=== PATIENT | female | born 1995 | race Caucasian/White ===

== ENCOUNTER 2022-05-31 09:09 | Outpatient (CLI) | payer BC, SELFPAY | END 2022-05-31 09:10 | disposition home or self-care (01) | LOC: NFLDREF 09:11 | PROVIDERS: Visit Provider Registered Nurse | DX: Z01.419 Encounter for gynecological examination (general) (routine) without abnormal findings (principal); Z13.6 Encounter for screening for cardiovascular disorders | CPT/HCPCS: 80061 ==

== ENCOUNTER 2022-09-27 11:51 | Outpatient (CLI) | payer BC, SELFPAY | END 2022-09-27 11:52 | disposition home or self-care (01) | PROVIDERS: PCP Registered Nurse; Visit Provider Registered Nurse | DX: R53.83 Other fatigue (principal) | CPT/HCPCS: 82306; 84443 ==

== ENCOUNTER 2023-02-14 11:04 | Outpatient (CLI) | payer BC, SELFPAY ==
[2023-02-14 13:09] LABS: Chlamydia DNA Amplified* NOT DETECTED (No Detected); GC DNA Amplified* NOT DETECTED (No Detected)
== END 2023-02-14 11:05 | disposition home or self-care (01) ==
LOC: NFLDREF 11:05
PROVIDERS: PCP Registered Nurse; Visit Provider Registered Nurse
DX: Z11.3 Encounter for screening for infections with a predominantly sexual mode of transmission (principal)
CPT/HCPCS: 87491; 87591

== ENCOUNTER 2024-08-18 17:54 | Outpatient (CLI) | payer BC, SELFPAY | END 2024-08-18 17:55 | disposition home or self-care (01) | LOC: NFLDREF 08-19 01:57 | DX: N30.01 Acute cystitis with hematuria (principal) | CPT/HCPCS: 87086 ==

== ENCOUNTER 2024-10-27 10:28 | Emergency (ER) | payer BC, SELFPAY ==
--- NOTE | 2024-10-27 10:29 | ED.GENADULT ---
HPI - General Adult General Date Seen: 10/27/24 Chief complaint: Abdominal Pain Stated complaint: pelvic pain Time Seen by Provider: 10/27/24 10:29 History of Present Illness HPI narrative: 29-year-old female presenting to the ER today with pain in her lower abdomen. She is according to her records from August. She had a UTI in August. She has a history of on IUD with removal last September. Also history of anxiety/depression (no medications listed). Family history of endometriosis, PCOS. She has no previous history of abdominal surgery. She think she probably has endometriosis but does not have a formal diagnosis. She has been healthy and well lately. She is due to have her next predicted menstrual cycle in about 5 days. Last night around midnight she had rather abrupt onset of pelvic pain. He was on both sides of her pelvis and felt achy and crampy similar to when she has bad. Cramping or mittelschmerz from ovulation but worse. She tried to lay an ice pack most and that it was painful. It is getting better this morning but is not gone. She called the [facility] to try to get an appointment but was referred here to the ER. She was mildly nauseous but did not vomit. No fever. No known injury. Bowel moods have been normal but she did have a little bit of pelvic pain when passing gas last. She was intimate with her shortly prior to onset of the pain but it did not occur during intercourse. Related Data Home Medications ?Medication ?Instructions ?Recorded ?Confirmed multivit,Ca,ryd-lhzn-EO-guarana-caff tab PO DAILY 05/31/22 08/20/24 18 mg iron-400 mcg-180 mg tablet (One-A-Day Women's Active) ubidecarenone-omega 3-vit E 25 1 cap PO ONCE 09/20/23 10/27/24 mg-150 (90-60) mg-200 unit capsule (Co G-37-Lhukiyn E-Fish Oil) Allergies Allergy/AdvReac Type Severity Reaction Status Date / Time No Known Allergies Allergy Unknown Verified 10/27/24 10:36 [facility] Medical History depression associated with first ?F53.0 - depression (ICD-10) Normal spontaneous vaginal delivery (06/06/21) ?O80 - Encounter for full-term uncomplicated delivery (ICD-10) Surgical History Anderson teeth extracted ?K08.409 - Partial loss of teeth, unspecified cause, unspecified class (ICD-10) Family History Father Heart disease Diabetes Paternal Grandfather Heart disease Paternal Grandmother Ovarian cancer Uterine cancer Maternal Grandmother Skin cancer Brain cancer Other Endometriosis PCOS (polycystic ovarian syndrome) Stroke Social History Narrative: Program at occupational health technician. . Nonsmoker. Alcohol use: 1 every 1-2 weeks What is your current living situation?: I presently have a place to live Problems where you live: no known problems In the past 12 months, utilities in danger of being shut off: no In past 12 months, lack of transportation kept you from medical appts, meetings, work, or getting things needed for daily living: no In the past 12 mos, have been you worried that your food would run out before you had money to buy more?: never true In the past 12 mos, the food you bought just didn't last and you didn't have money to buy more?: never true Smoking Status: Never smoker How often do you have a drink containing alcohol: never AUDIT-C Alcohol total score: 0 Non-prescribed substance use: denies use How often does anyone, including family, friends and others, physically hurt you: never How often does anyone, including family, friends and others, insult or talk down to you: never How often does anyone, including family, friends and others, threaten you with harm: never How often does anyone, including family, friends and others, scream or curse at you: never Exam Narrative: Exam Narrative: Constitutional: Appears well-developed and well-nourished. Alert. Conversant. Non toxic. HENT: Head: Atraumatic. Nose: Nose normal. Mouth/Throat: Oral mucosa is clear and moist. no trismus. Pharynx normal. Tonsils symmetric. No tonsillar enlargement, erythema, or exudate. Eyes: Conjunctivae normal. EOM normal. Pupils equal, round, and reactive to light. No scleral icterus. Neck: Normal range of motion. Neck supple. No tracheal deviation present. Cardiovascular: Normal rate, regular rhythm. No gallop. No friction rub. No murmur heard. Symmetric radial artery pulses Pulmonary/Chest: Effort normal. No stridor. No respiratory distress. No wheezes. No rales. No rhonchi . No tenderness. Abdominal: Soft. Bowel sounds normal. No distension. No mass. Right lower quadrant and suprapubic> left lower quadrant tenderness. No rebound. No guarding. No CVA tenderness Musculoskeletal: RUE: Normal range of motion. No tenderness. No deformity LUE: Normal range of motion. No tenderness. No deformity RLE: Normal range of motion. No edema. No tenderness. No deformity LLE: Normal range of motion. No edema. No tenderness. No deformity Neurological: Alert and oriented to person, place, and time. Normal strength. CN II-VII intact. No sensory deficit. GCS eye subscore is 4. GCS verbal subscore is 5. GCS motor subscore is 6. Normal coordination Skin: Skin is warm and dry. No rash noted. No pallor. Normal capillary refill. Psychiatric: Normal mood. Normal affect. Const: Vital Signs, click to edit/add: Vital Signs - 24 hr 10/27/24 10:30 Temperature 98.2 F Pulse Rate [Right Pulse Oximeter] 66 Respiratory Rate 18 Blood Pressure [Ri ght Upper Arm] 127/83 Pulse Oximetry 99 Oxygen Delivery Me thod Room Air Course Vital Signs Vital signs: Initial Vital Signs Temperature 98.2 F 10/27/24 10:30 Temperature Source Temporal Artery Scan 10/27/24 10:30 Pulse Rate 66 10/27/24 10:30 Pulse Rhythm Regular 10/27/24 10:30 Pulse Strength 3+ Normal 10/27/24 10:30 Respiratory Rate 18 10/27/24 10:30 Blood Pressure 127/83 10/27/24 10:30 Blood Pressure Mean 97 10/27/24 10:30 Blood Pressure Position Sitting 10/27/24 10:30 Pulse Oximetry 99 10/27/24 10:30 Oxygen Delivery Method Room Air 10/27/24 10:30 Vital Signs Temperature 98.2 F 10/27/24 10:30 Pulse Rate 66 10/27/24 10:30 Respiratory Rate 18 10/27/24 10:30 Blood Pressure 127/83 10/27/24 10:30 Pulse Oximetry 99 10/27/24 10:30 Oxygen Delivery Method Room Air 10/27/24 10:30 Temperature 98.2 F 10/27/24 10:30 Pulse Rate 66 10/27/24 10:30 Respiratory Rate 18 10/27/24 10:30 Blood Pressure 127/83 10/27/24 10:30 Pulse Oximetry 99 10/27/24 10:30 Oxygen Delivery Method Room Air 10/27/24 10:30 Medications Administered Medications: Discontinued Medications Generic Name Dose Route Start Last Admin Trade Name Marie PRN Reason Stop Dose Admin Ibuprofen 600 mg 10/27/24 10:53 10/27/24 11:57 Ibuprofen 600 Mg Tablet PO 10/27/24 10:54 600 mg ONCE ONE Administration Medical Decision Making MDM Narrative Medical decision making narrative: Presented to the Emergency Department with pelvic pain, right> left-sided. The differential diagnosis of abdominal pain includes: Ovarian cyst, torsion, complication, as well as early onset Appendicitis, Bowel Obstruction, Ulcer, Ischemia, Diverticulitis, UTI, kidney stone, Enteritis/Colitis, amongst many other etiologies. Tell upper pain to suggest pancreatitis, cholecystitis, biliary colic, gastritis. Imaging is noted to shows signs of a right ovarian cyst with free flow of fluid likely indicative of rupture. Based on labs and presentation, this is not appear to be an a hemorrhagic cyst. No fever or other symptoms to suggest PID or TOA. She is not . No evidence for ectopic. Discussed need for follow-up with mechanical engineering officer for her cyst. Pain is improved now tolerable after oral ibuprofen. She feels like this will be a comfortable analgesic for her at home. Therefore will avoid prescription opiates at this time. No life threatening cause or need for emergent surgery or hospital admission is detected today. The patient was advised that if symptoms are not improving within another 24 hours re-evaluation with primary care or return to the ED is indicated. The patient also understands that if they worsen, they should return to the ER right away. I discussed the uncertainty about the diagnosis and answered the patient's questions. Abdominal pain return precautions discussed. Lab Data Labs: Lab Results 10/27/24 10/27/24 Range/Units 11:44 11:50 WBC 8.60 (4.50-11.00) K/uL RBC 4.40 (4.00-5.20) m/uL Hgb 13.2 (12.0-16.0) gm/dL Hct 38.6 (33.0-51.0) % MCV 88 (80-100) fL MCH 30 (26-34) pg MCHC 34 (32-36) gm/dL RDW Coeff of Isabel 11.6 (11.5-15.5) % Plt Count 270 (140-440) K/uL Neut % (Auto) 69.8 (42.0-72.0) % Lymph % (Auto) 22.9 (20-44) % [place] % (Auto) 6.0 (0.0-11.0) % Eos % (Auto) 1.0 (0.0-7.0) % Baso % (Auto) 0.2 (0.0-3.0) % Neut # (Auto) 5.99 (1.7-7.0) K/uL Lymph # (Auto) 1.97 (0.90-2.90) K/uL [place] # (Auto) 0.50 (0.00-0.90) K/UL Eos # (Auto) 0.09 (0.00-0.50) K/uL Baso # (Auto) 0.02 (0.00-0.30) K/uL Abs Immat Gran (auto) 0.01 (0.00-0.30) K/uL Imm/Tot Granulo (auto) 0.1 % Sodium 137 (135-149) mmol/L Potassium 4.6 (3.6-5.1) mmol/L Chloride 104 (96-114) mmol/L Carbon Dioxide 25 (20-32) mmol/L Anion Gap 8 (7-15) mEq/L BUN 15 (5-24) mg/dL Creatinine 0.5 (0.5-1.5) mg/dL Estimated Creat Clear 167.47 Estimated GFR 130 ml/min Glucose 91 (60-115) mg/dL Calcium 9.3 (8.4-10.6) mg/dL Urine Color Yellow (Yellow) Urine Appearance Clear (Clear) Urine pH 8.5 (5.0-8.5) Ur Specific Britt 1.015 (1.000-1.030) Urine Protein Negative (Negative) Urine Glucose (UA) Negative (Negative) Urine Ketones Negative (Negative) Urine Blood Negative (Negative) Urine Nitrite Negative (Negative) Urine Bilirubin Negative (Negative) Urine Urobilinogen 0.2 (0.2-1.0) Ur Leukocyte Esterase Negative (Negative) Urine RBC 0-2 (0-2) Urine WBC 0-2 (0-5) Ur Squamous Epith Cells None (None-Few) Urine Bacteria None (None) Urine HCG, Qual Negative (Negative) Imaging Data US Pelvic: Attestation: I have reviewed the pertinent imaging results. Radiologist's impression: vIMPRESSION: 1. Demonstration of likely ruptured right-sided ovarian cyst with fluid in the adnexa and cul-de-sac. Otherwise no acute abnormality. Discharge Plan Discharge Clinical Impression: Cyst of right ovary Patient Disposition: Home, Self-Care Condition: Stable Instructions: Ovarian Cyst (ED) Additional Instructions: As we discussed, please return to the ER right away if you have any concerns especially worsening or uncontrolled pain, high fever, uncontrolled vomiting, lightheadedness or weakness. We expect her cyst to get better over the next couple of days. You can use ibuprofen or Tylenol as needed. You can also use cold packs or ice packs as needed. [facility] for a recheck within 1-2 weeks. Prescriptions: No Action One-A-Day Women's Active 18 mg iron- 400 mcg-180 mg tablet PO DAILY Co D-89-Odysjhe E-Fish Oil 25-150-200 mg-mg-unit capsule 1 cap PO ONCE Follow Up/Referrals: Provider,Not a Local [Primary Care Provider, Family Practice] Stand Alone Forms: [facility] Info Instructions
[2024-10-27 10:30] VITALS: BP 127/83; PULSE 66; RESP 18; TEMP 36.8; O2SAT 99; BMI 29.8
--- NOTE | 2024-10-27 10:53 | CRLHL7_ITS ---
For Patients: As a result of the Century Cures Act, medical imaging exams and procedure reports are released immediately into your electronic medical record. You may view this report before your referring provider. If you have questions, please contact your health care provider. INDICATION: Sudden pelvic pain 10 hours ago [id number]-[id number]-[id number]-left TECHNIQUE: Ultrasound pelvis transabdominal and transvaginal for better assessment or to better visualize the endometrium. Real-time sonographic images with spectral and color Doppler imaging of the ovaries were obtained. COMPARISON: None FINDINGS: Uterus: 8.3 x 4.8 x 5.9 cm. Normal echotexture of the myometrium. No masses. Endometrium: Transvaginal imaging was performed to better evaluate the endometrium. Endometrial thickness measures 12 mm. No sign of endometrial mass or fluid. Right ovary measures 5.1 x 2.8 x 2.7 cm and left ovary measures 4.1 x 1.3 x 1.2 cm. There is demonstration of likely ruptured cyst within the right ovary with moderate fluid in the right adnexa. Normal arterial and venous blood flow is demonstrated in both ovaries. Cul-de-sac: Gqcj-ty-[id number] free fluid. IMPRESSION: 1. Demonstration of likely ruptured right-sided ovarian cyst with fluid in the adnexa and cul-de-sac. Otherwise no acute abnormality. Dictated by Magdiel Stewart MD @ 10/27/2024 12:11:39 PM (Electronically Signed)
[2024-10-27] MEDS: IBUPROFEN 600 MG TABLET PO (11:57)
[2024-10-27 11:59] LABS: Hematocrit* 38.6 % (33.0-51.0); Hemoglobin* 13.2 gm/dL (12.0-16.0); Immature Granulocytes Abs Auto 0.01 K/uL (0.00-0.30); Immature Granulocytes Pct Auto 0.1 %; Lymphocytes Absolute Auto 1.97 K/uL (0.90-2.90); Mean Corpuscular HGB Conc 34 gm/dL (32-36); Mean Corpuscular Hemoglobin 30 pg (26-34); Mean Corpuscular Volume 88 fL (80-100); RDW Coefficient of Variation % 11.6 % (11.5-15.5); Red Blood Count* 4.40 m/uL (4.00-5.20); White Blood Count* 8.60 K/uL (4.50-11.00)
[2024-10-27 12:00] LABS: Slide Review Reflex No
[2024-10-27 12:02] LABS: Appearance Urine Clear (Clear)
[2024-10-27 12:07] LABS: Ur HCG Qualitative* Negative (Negative)
[2024-10-27 12:11] LABS: Chloride* 104 mmol/L (96-114); Potassium* 4.6 mmol/L (3.6-5.1); Sodium* 137 mmol/L (135-149)
[2024-10-27 12:14] LABS: Anion Gap 8 mEq/L (7-15); Blood Urea Nitrogen* 15 mg/dL (5-24); Carbon Dioxide* 25 mmol/L (20-32); Creatinine* 0.5 mg/dL (0.5-1.5); Est. Creatinine Clearance* 167.47; Estimated Glomerular Filt Rate 130 ml/min
[2024-10-27 12:15] LABS: Calcium* 9.3 mg/dL (8.4-10.6); Glucose* 91 mg/dL (60-115)
== END 2024-10-27 12:52 | disposition home or self-care (01) ==
PROVIDERS: Emergency Provider Emergency Medicine
DX: N83.201 Unspecified ovarian cyst, right side (principal)
CPT/HCPCS: 36415; 76830; 76856; 80048; 81001; 81025; 85025; 99283; 99284; A9270

== ENCOUNTER 2024-11-25 08:25 | Outpatient (CLI) | payer BC, SELFPAY | END 2024-11-25 08:26 | disposition home or self-care (01) | LOC: NFLDREF 08:25 | PROVIDERS: Visit Provider Physician Assistant | DX: N92.0 Excessive and frequent menstruation with regular cycle (principal) | CPT/HCPCS: 84443 ==